=== PATIENT | female | born 1975 | race Caucasian/White ===

== ENCOUNTER 2017-01-20 22:20 | Emergency (ER) | payer OTHER ==
[~2017-01-20] VITALS: Ht 170.2 cm; Wt 100.0 kg
[~2017-01-20 22:20] MED LIST: ALBUTHFA INH; EPIN0.3D IM; IMI25 PO; KETO5DRO21 OP; MET10 PO; VENL75CA PO
[2017-01-20 22:35] VITALS: BP 142/104; PULSE 80; RESP 16; O2SAT 98
--- NOTE | 2017-01-20 23:32 | ED.REPORT ---
HPI-Rash / Abscess Date of Service January 20, 2017 ED Provider: Deng Hubbard MD Patient is a 41 female who presents to the ED due to a erythematous and swollen area on her right ankle onset last night. Associated symptoms include right foot pain. She reports that she does not recall being bit by an insect or hitting her foot. Nursing Notes Stated Complaint: R LEG SWELLING/PAIN Chief Complaint: Skin Rash/Abscess Nursing Notes Reviewed: Yes Allergies: Coded Allergies: diphenhydramine (Verified Allergy, Severe, HIVES, SOB, 06/05/13) Penicillins (Verified Allergy, Unknown, UNKNOWN (CHILDHOOD), 06/05/13) bee pollen (Verified Allergy, Unknown, stated bee stings/ not pollen, 01/20) Scheduled Epinephrine-Expunged Drug, Do Not Renew! (Epipen-Expunged Drug, Do Not Renew!) 0.3 Mg/0.3/Syringe Pen.injctr 0.3 MG IM PRN Ketotifen Fumarate (Zaditor 0.025% Oph Soln 5 mL Btl) 75 Drop/5 Ml Ryan 1 DROP OP BID Methadone-Expunged Drug, Do Not Renew! (Dolophine-Expunged Drug, Do Not Renew!) 10 Mg Tab 10 MG PO TID Sumatriptan-Expunged Drug, Do Not Renew! (Imitrex-Expunged Drug, Do Not Renew!) 25 Mg Tab 25 MG PO PRN Venlafaxine-Expunged Drug, Do Not Renew! (Venlafaxine XR-Expunged Drug, Do Not Renew!) 75 Mg Cap.er.24h 225 MG PO AM Scheduled PRN Albuterol-Expunged Drug, Do Not Renew! (Albuterol-Expunged Drug, Do Not Renew!) 90 Mcg/Puff Hfa.aer.ad 2 PUFF INH Q4-6H PRN PRN For Wheezing or Shortness of Breath General Time Seen by MD: 23:32 Chief Complaint Red area Hx Obtained From: Patient Arrived By: Walk-in Onset Occurred: Yesterday Symptom Duration: Since onset Location: : Foot Recent Healthcare: No recent doctor visit, No recent hospitalization Similar Sx Previous: No Past Medical History Social History Other Social History: Good social support Ambulatory Status Independent Review of Systems Musculoskeletal: Reports: Extremity pain (right ankle), Extremity swelling ( right ankle) Skin: Reports Rash Complete sys rev & neg: except as marked. Physical Exam Initial Vital Signs Vital Signs (First) Date Time Temp Pulse Resp B/P Pulse Ox O2 Delivery O2 Flow Rate FiO2 01/20/17 22:35 36.7 80 16 142/104 98 Room Air Initial VS: Reviewed General/Constitutional: Awake, Alert, No acute distress Skin: Atraumatic, Dry 5cm x 5cm cellulitis on right ankle no abscess erythematous and hot Head / Eyes: Atraumatic, Normocephalic, PERRL, EOMI Respiratory / Chest: Atraumatic, Breath sounds NL, Breath sounds = bilat, No respiratory distress Cardiovascular: Heart rate NL, Regular rhythm, Heart sounds NL, No murmurs Upper Extremity / MS: Atraumatic, Full range of motion Lower Extremity / Pelvis / MS: Atraumatic, Full range of motion Neurologic: Oriented X3, Speech NL, No motor deficits, No sensory deficits Wrist / Hand: Atraumatic, Full range of motion Psychiatric: Affect NL, Mood NL Re-Eval/Medical Decision Re-Evaluation/Progress : Time of Eval: 23:46 Re-Evaluation/Progress Note: Discussed plan for treatment and discharge during initial interview. The patient understands and agrees to the plan for discharge. All questions were addressed. Counseled Regarding: Diagnosis, Need for follow-up, When/why to return to ED Discharge & Departure Impression: Primary Impression: Cellulitis Site of cellulitis: other site Qualified Code: L03.818 - Cellulitis of other sites Disposition: Home Discharge Condition All VS Reviewed: Yes Condition: Stable Additional Instructions: Take the antibiotic Keflex 4x a day for 5 days and Bactrim 2x a day for 5 day as prescribed. You can take the Oxycodone every 6 hours as prescribed for pain. Do not drive or consume alcohol while on Oxycodone. Elevate your leg as much as possible. It will get worse before it gets worse Follow up with your primary care physician on Sunday. If an abscess appears, return to the emergency department to have it examined and drained. Return to the emergency department sooner if you develop any new or worsening symptoms. Referrals: June Mendieta MD (PCP) Scribe Attestation Portions of this note were transcribed by Lorena Joyce. Dr. Stevie Cevallos personally performed the history, physical exam and medical decision-making; I reviewed and confirmed the accuracy of the information in the transcribed note. Signed by:Yonatan Mccauley, 01/20/17 and 4101 copies to: June Mendieta MD, Todd P DO January 20, 2017 23:32 Natalya Joyce January 20, 2017 23:52
[2017-01-21] MEDS ORDERED: Trimethoprim-Sulfa 160 mg-800 mg Tablet PO ONE (00:10)
[2017-01-21] MEDS ORDERED: Clindamycin 150 mg/mL 2 mL Inj IM ONE (00:35)
[2017-01-21] MEDS ORDERED: cefTRIAXone Inj 1,000 MG, Lidocaine PF 1% Inj 2.1 ML in Syringe 0 EACH IM ONE (00:35)
[2017-01-21 00:40] VITALS: BP 142/104; PULSE 80; RESP 16; O2SAT 98
== END 2017-01-21 00:41 | disposition home or self-care (01) ==
LOC: SED 22:20
DX: L03.115 Cellulitis of right lower limb (principal); Z88.0 Allergy status to penicillin; Z88.8 Allergy status to other drugs, medicaments and biological substances; Z91.030 Bee allergy status